=== PATIENT | female | born 1985 | race Caucasian/White ===

== ENCOUNTER 2017-03-12 17:28 | Emergency (ER) | payer SELFPAY ==
[2017-03-12 18:21] VITALS: BP 111/85
[2017-03-12 18:41] LABS: Basophils % (Auto) 0.6 % (0.0-1.8); Eosinophils % (Auto) 1.2 % (0.0-4.3); Hematocrit 35.6 % (30.3-42.9); Hemoglobin 11.7 gm/dl (10.1-14.3); Mean Corpuscular HGB Conc 33 % (30-34); Mean Corpuscular Hemoglobin 26 pg (28-32); Mean Corpuscular Volume 80 fl (79-97); Platelet Count 273 K/mm3 (140-440); Red Blood Count 4.47 M/mm3 (3.65-5.03); Red Cell Distribution Width 16.6 % (13.2-15.2); White Blood Count 7.3 K/mm3 (4.5-11.0)
[2017-03-12 19:09] LABS: Alanine Aminotransferase 13 units/L (7-56); Albumin 4.4 g/dL (3.9-5); Albumin/Globulin Ratio 1.3 %; Alkaline Phosphatase 72 units/L (35-129); Anion Gap 17 mmol/L; BUN/Creatinine Ratio 28.33; Blood Urea Nitrogen 17 mg/dL (7-17); Calcium 9.3 mg/dL (8.4-10.2); Carbon Dioxide 25 mmol/L (22-30); Chloride 101.6 mmol/L (98-107); Glucose 81 mg/dL (65-100); Lipase 24 units/L (13-60); Potassium 4.2 mmol/L (3.6-5.0); Sodium 139 mmol/L (137-145); Total Protein 7.9 g/dL (6.3-8.2)
[2017-03-12 19:31] LABS: Bilirubin,Urine NEG (Negative); Blood,Urine NEG (Negative); Ketones,Urine NEG (Negative); Leukocyte Esterase,Urine NEG (Negative); Mucus,Urine FEW /HPF; Nitrite,Urine NEG (Negative); Protein,Urine <15 mg/dL mg/dL (Negative); Urobilinogen,Urine < 2.0 mg/dL (<2.0); WBC,Urine < 1.0 /HPF (0.0-6.0)
== END 2017-03-13 00:05 | disposition left against medical advice (07) ==
LOC: ED 17:28
DX: R10.13 Epigastric pain (principal); R11.2 Nausea with vomiting, unspecified; Z53.21 Procedure and treatment not carried out due to patient leaving prior to being seen by health care provider
CPT/HCPCS: 36415; 80053; 81001; 83690; 85025

== ENCOUNTER 2020-04-24 08:03 | Emergency (ER) | payer OTHER ==
[2020-04-24] MEDS ORDERED: ASPIRIN 325 MG TAB PO ONE (08:25)
[2020-04-24 09:04] LABS: Blood Urea Nitrogen 10 mg/dL (7-17); Hemolysis Index 8
[2020-04-24 09:05] LABS: BUN/Creatinine Ratio 14
--- NOTE | 2020-04-24 09:13 | XRay Report ---
CHEST PA AND LATERAL VIEWS INDICATION: Chest Pain. COMPARISON: None FINDINGS: Support devices: None Heart: Normal Lungs/Pleura: No acute pulmonary or pleural findings. IMPRESSION: 1. No significant abnormality. Signer Name: Ángel Sprague MD Signed: 04/24/2020 9:08 AM Workstation Name: [id number]
[2020-04-24 09:19] LABS: Basophils # (Auto) 0.1 K/mm3 (0.0-0.1); Basophils % (Auto) 0.7 % (0.0-1.8); Eosinophils # (Auto) 0.1 K/mm3 (0.0-0.4); Hematocrit 40.9 % (30.3-42.9); Hemoglobin 13.5 gm/dl (10.1-14.3); Lymphocytes # (Auto) 1.9 K/mm3 (1.2-5.4); Mean Corpuscular HGB Conc 33 % (30-34); Mean Corpuscular Volume 88 fl (79-97); Monocytes # (Auto) 0.5 K/mm3 (0.0-0.8); Monocytes % (Auto) 6.7 % (0.0-7.3); Platelet Count 279 K/mm3 (140-440); Red Blood Count 4.63 M/mm3 (3.65-5.03); Red Cell Distribution Width 12.9 % (13.2-15.2)
--- NOTE | 2020-04-24 12:16 | Emergency Department Report ---
ED Chest Pain HPI - General Chief Complaint: Chest Pain Stated Complaint: CHEST PAIN/LFT ARM PAIN Time Seen by Provider: 04/24/20 11:24 Source: patient Mode of arrival: Ambulatory Limitations: Language Barrier - History of Present Illness Initial Comments: This is a 35-year-old female with no prior medical problems who presents to the ED complaining of mid to left-sided chest pain that began Wednesday 5 days ago. Patient states that pain is intermittent feels like [id number] and last for maybe about 5 to 10 minutes and then goes away. Patient states sometimes she feels the pain on the right side of the chest as well. Patient also states that she feels associated left upper shoulder pain. Patient states that sometimes this pain and 8 out of 10 intensity and goes down. Patient denies taking any medications or having any medical problems. She denies fever/chills/shortness of breath/any trauma injuries. MD Complaint: chest pain - Related Data Previous Rx's Medication Instructions Recorded Last Taken Type Naproxen [Naprosyn] 500 mg PO BID #30 tablet 04/24/20 Unknown Rx Allergies Allergy/AdvReac Type Severity Reaction Status Date / Time No Known Allergies Allergy Verified 04/24/20 08:19 Heart Score - HEART Score History: Slightly suspicious EKG: Normal Age: < 45 Risk factors: No known risk factors Troponin: < normal limit HEART Score: 0 ED Review of Systems ROS: Stated complaint: CHEST PAIN/LFT ARM PAIN Other details as noted in HPI Comment: All other systems reviewed and negative ED Past Medical Hx - Past Medical History Previous Medical History?: No - Surgical History Hx Cholecystectomy: Yes - Social History Smoking Status: Never Smoker Substance Use Type: None - Medications Home Medications: Home Medications Medication Instructions Recorded Confirmed Last Taken Type Naproxen [Naprosyn] 500 mg PO BID #30 tablet 04/24/20 Unknown Rx ED Physical Exam - General Limitations: Language Barrier General appearance: alert, in no apparent distress - Head Head exam: Present: atraumatic, normocephalic - Eye Eye exam: Present: normal appearance - ENT ENT exam: Present: mucous membranes moist - Neck Neck exam: Present: normal inspection - Respiratory Respiratory exam: Present: normal lung sounds bilaterally, chest wall tenderness (To the left upper chest region.). Absent: respiratory distress - Cardiovascular Cardiovascular Exam: Present: regular rate, normal rhythm. Absent: systolic murmur, diastolic murmur, rubs, gallop - GI/Abdominal GI/Abdominal exam: Present: soft, normal bowel sounds - Extremities Exam Extremities exam: Present: normal inspection - Back Exam Back exam: Present: normal inspection, full ROM - Neurological Exam Neurological exam: Present: alert, oriented X3, CN II-XII intact, normal gait - Psychiatric Psychiatric exam: Present: normal affect, normal mood - Skin Skin exam: Present: warm, dry, intact, normal color. Absent: rash ED Course Vital Signs 04/24/20 08:20 Temperature 98.4 F Pulse Rate 82 Respiratory 18 Rate Blood Pressure 114/74 O2 Sat by Pulse 97 Oximetry WILLIAN score - Willian Score Age > 65: (0) No Aspirin use within the Past 7 Days: (0) No 3 or more CAD Risk Factors: (0) No 2 or more Angina events in past 24 hrs: (0) No Known CAD with more than 50% Stenosis: (0) No Elevated Cardiac Markers: (0) No ST Deviation Greater than 0.5mm: (0) No WILLIAN Score: 0 ED Medical Decision Making - Lab Data Result diagrams: 04/24/20 08:35 04/24/20 08:35 Lab Results 04/24/20 04/24/20 Range/Units 08:35 08:35 WBC 7.4 (4.5-11.0) K/mm3 RBC 4.63 (3.65-5.03) M/mm3 Hgb 13.5 (10.1-14.3) gm/dl Hct 40.9 (30.3-42.9) % MCV 88 (79-97) fl MCH 29 (28-32) pg MCHC 33 (30-34) % RDW 12.9 L (13.2-15.2) % Plt Count 279 (140-440) K/mm3 Lymph % (Auto) 26.0 (13.4-35.0) % [place] % (Auto) 6.7 (0.0-7.3) % Eos % (Auto) 1.0 (0.0-4.3) % Baso % (Auto) 0.7 (0.0-1.8) % Lymph # (Auto) 1.9 (1.2-5.4) K/mm3 [place] # (Auto) 0.5 (0.0-0.8) K/mm3 Eos # (Auto) 0.1 (0.0-0.4) K/mm3 Baso # (Auto) 0.1 (0.0-0.1) K/mm3 Seg Neutrophils % 65.6 (40.0-70.0) % Seg Neutrophils # 4.8 (1.8-7.7) K/mm3 Sodium 139 (137-145) mmol/L Potassium 4.3 (3.6-5.0) mmol/L Chloride 105.9 (98-107) mmol/L Carbon Dioxide 27 (22-30) mmol/L Anion Gap 10 mmol/L BUN 10 (7-17) mg/dL Creatinine 0.7 (0.6-1.2) mg/dL Estimated GFR > 60 ml/min BUN/Creatinine Ratio 14 % Glucose 89 (65-100) mg/dL Calcium 9.0 (8.4-10.2) mg/dL Troponin T < 0.010 (0.00-0.029) ng/mL - EKG Data EKG shows normal: sinus rhythm Rate: normal - EKG Data When compared to previous EKG there are: no significant change Interpretation: normal EKG - Radiology Data Radiology results: report reviewed, image reviewed CHEST PA AND LATERAL VIEWS INDICATION: Chest Pain. COMPARISON: None FINDINGS: Support devices: None Heart: Normal Lungs/Pleura: No acute pulmonary or pleural findings. IMPRESSION: 1. No significant abnormality. Signer Name: Ángel Sprague MD Signed: 04/24/2020 9:08 AM Workstation Name: [id number] Transcribed By: TM Dictated By: Ángel Sprague MD Electronically Authenticated By: Ángel Sprague MD Signed Date/Time: 04/24/20 0908 - Medical Decision Making This 35-year-old female presented with chest pain. Chest pain was secondary to chest wall pain according to evaluation. All labs are within normal limits patient was in no acute distress throughout ED stay. Discussed the patient to follow-up with her primary care physician. All labs are within normal limits. Patient understands instructions. I discussed with patient if she has any worsening or new symptoms to return to the ED. Critical care attestation.: If time is entered above; I have spent that time in minutes in the direct care of this critically ill patient, excluding procedure time. ED Disposition Clinical Impression: Costochondral chest pain Disposition: DC-01 TO HOME OR SELFCARE Is pt being admited?: No Does the pt Need Aspirin: No Condition: Stable Instructions: Chest Pain (ED), Costochondritis (ED), Diet for Ulcers and Gastritis (ED), Gastroesophageal Reflux Disease (ED) Additional Instructions: Make sure to follow up with the primary care physician as discussed. Take all your medications as you've been prescribed. If you have any worsening symptoms or develop new symptoms please return to ED immediately. Prescriptions: Naproxen [Naprosyn] 500 mg PO BID #30 tablet Referrals: PRIMARY CARE, [Primary Care Provider] - 3-5 Days [facility] [Outside] - 3-5 Days [facility] [Outside] - 3-5 Days Forms: Work/School Release Form(ED) Time of Disposition: 12:27 Print Language: CONGOLESE
[2020-04-24 12:54] VITALS: BP 108/79
== END 2020-04-24 12:54 | disposition home or self-care (01) ==
LOC: ED 08:03
DX: R07.89 Other chest pain (principal); M79.602 Pain in left arm; Z90.49 Acquired absence of other specified parts of digestive tract; Z79.899 Other long term (current) drug therapy
CPT/HCPCS: 36415; 71046; 80048; 84484; 85025; 93005